=== PATIENT | male | born 1960 | race Two or more races ===

== ENCOUNTER 2018-05-21 13:46 | Emergency (ER) | payer MEDICAID ==
[2018-05-21 13:53] VITALS: BP 150/91
[2018-05-21] MEDS ORDERED: FLUORESCEIN SODIUM 1 MG STRIP OP ONE ×2 (14:01→14:02)
[2018-05-21] MEDS ORDERED: PROPARACAINE 0.5% 15 ML OPHT DROP ONE (14:01)
[2018-05-21] MEDS ORDERED: PROPARACAINE 0.5% 15 ML OPHT DROP RTEYE ONE (14:03)
--- NOTE | 2018-05-21 14:08 | EDPHY ---
HPI/HX/ROS/PE/MDM Narrative: CHIEF COMPLAINT: Right eye injury HPI: This patient is a 57 year old male with history of hypertension, panic attacks, hyperlipidemia. He complains of blood in his right eye. About one hour prior to arrival, he walked into a tree and a branch poked into his right eye. He denies any any pain. He denies any visual changes. No discharge from the eye. The appearance of blood in his eye is his only complaint today. He denies any other recent illness or trauma. REVIEW OF SYSTEMS: A comprehensive 10 system review of systems is otherwise negative aside from elements mentioned in the history of present illness and medical decision making. PMH: Hypertension, panic attacks, hyperlipidemia SOCIAL HISTORY: Single. Self-employed. Lives in [place]. PHYSICAL EXAM: General:Patient is alert, in no acute distress. ENT:Right eye subconjunctival hemorrhage noted. Pupil round and reactive. No deformity. EOMI. Neuro: Oriented x3. Normal motor function. Normal sensory function. ED Course: Slit lamp exam with fluoroscein dye: two parallel corneal abrasions noted to lateral eye. No streaming. MDM: Corneal abrasions with associated small subconj hemorrhage. I will prescribe antibiotic gtts and refer to ophtho. General Time Seen by Provider: 05/21/18 13:59 Initial Vital Signs: Initial Vital Signs Temperature (C) 37.1 C 05/21/18 13:51 Heart Rate 80 05/21/18 13:51 Respiratory Rate 17 05/21/18 13:51 Blood Pressure 150/91 H 05/21/18 13:51 O2 Sat (%) 94 05/21/18 13:51 O2 Delivery Mode Room Air Allergies/Adverse Reactions: No Known Allergies Allergy (Verified 05/21/18 13:51) Home Medications: Medication Instructions Recorded ALPRAZOLAM 0.5 mg PO 06/12/11 Ativan 1 mg PO PRN 06/12/11 Atorvastatin Calcium 03/21/18 Losartan Potassium 03/21/18 PARoxetine HCL 03/21/18 Departure - Departure Disposition: Home, Routine, Self-Care Clinical Impression: Subconjunctival hemorrhage of right eye, Corneal abrasion Condition: Good Instructions: Subconjunctival Hemorrhage (ED), Corneal Abrasion (ED) Additional Instructions: Follow up with your primary care provider. A referral to ophthalmology has been provided as well. Return to the emergency department for pain in your eye, changes in your vision , discharge from the eye, or other worsening of condition. USE ANTIBIOTIC DROPS - ONE DROP IN RIGHT EYE EVERY 4 HOURS WHEN AWAKE FOR FIVE DAYS. Referrals: Jayesh Broderick MD [Primary Care Provider] - As per Instructions Fady Leo MD [Medical Doctor] - As per Instructions Report Scribed for: Boris Nails Report Scribed by: Estefany Live Date of Report: 05/21/18 Time of Report: 14:12 Physician Review and Approval Statement: Portions of this note were transcribed by an ED scribe. I personally performed the history, physical exam, and medical decision making; and confirm the accuracy of the information in the transcribed note.
[2018-05-21] MEDS ORDERED: GENTAMICIN 0.3% DROPS PREPACK OPHT.BTL TAKEHOME ONE (14:14)
== END 2018-05-21 14:23 | disposition home or self-care (01) ==
DX: S05.01XA Injury of conjunctiva and corneal abrasion without foreign body, right eye, initial encounter (principal); W22.09XA Striking against other stationary object, initial encounter; I10 Essential (primary) hypertension; E78.5 Hyperlipidemia, unspecified

== ENCOUNTER 2018-05-25 16:48 | Emergency (ER) | payer MEDICAID ==
[2018-05-25 17:03] VITALS: BP 133/78
--- NOTE | 2018-05-25 17:32 | EDPHY ---
H & P Stated Complaint: eye drops spilled need more Time Seen by Provider: 05/25/18 17:14 HPI/ROS: CHIEF COMPLAINT: Corneal abrasion, ran out of medication HISTORY OF PRESENT ILLNESS: 57-year-old male presents with request for medication refill. He sustained a corneal abrasion a few days ago. He was seen in this emergency department and placed on gentamicin eyedrops. Today he had the drops in his pocket and the liquid ran out of the bottle and onto his shorts. He does not have any further medication. He denies drainage, change in vision or eye pain. REVIEW OF SYSTEMS: complete 10 point ROS reviewed and is negative except for the noted elements in the HPI - Personal History Current Tetanus/Diphtheria Vaccine: Yes Current Tetanus Diphtheria and Acellular Pertussis (TDAP): Yes - Medical/Surgical History Hx Asthma: No Hx Chronic Respiratory Disease: No Hx Diabetes: No Hx Cardiac Disease: Yes Hx Renal Disease: No Hx Cirrhosis: No Hx Alcoholism: No Hx HIV/AIDS: No Hx Splenectomy or Spleen Trauma: No Other PMH: anxiety, HTN, high cholesterol - Social History Smoking Status: Never smoked - Physical Exam Exam: Lids: no proptosis, no periorbital erythema or swelling Conjunctivae: Right subconjunctival hemorrhage, no discharge Pupils:equal round and reactive to light EOMI Cornea: Normal Anterior chamber:Clear, no hyphema Constitutional: Initial Vital Signs Temperature (C) 37.0 C 05/25/18 17:01 Heart Rate 73 05/25/18 17:01 Respiratory Rate 16 05/25/18 17:01 Blood Pressure 133/78 H 05/25/18 17:01 O2 Sat (%) 94 05/25/18 17:01 O2 Delivery Mode Room Air Allergies/Adverse Reactions: No Known Allergies Allergy (Verified 05/25/18 17:03) Home Medications: Medication Instructions Recorded ALPRAZOLAM 0.5 mg PO 06/12/11 Ativan 1 mg PO PRN 06/12/11 Atorvastatin Calcium 03/21/18 Losartan Potassium 03/21/18 PARoxetine HCL 03/21/18 Gentamicin 0.3% Drops Prepack 05/25/18 Gentamicin 0.3% [Gentak 0.3% Opht 2 drop OP Q4 #1 bottle 05/25/18 Drops (RX)] Medical Decision Making ED Course/Re-evaluation: Gentamicin eyedrops called in to the pharmacy by the ED RN. Departure - Departure Disposition: Home, Routine, Self-Care Clinical Impression: Medication refill Corneal abrasion, right Qualifiers: Encounter type: subsequent encounter Qualified Code(s): S05.01XD - Injury of conjunctiva and corneal abrasion without foreign body, right eye, subsequent encounter Condition: Good Instructions: Corneal Abrasion (ED), Medicine Refill (ED) Referrals: NONE *PRIMARY CARE P,. [Primary Care Provider] - As per Instructions Prescriptions: Gentamicin 0.3% [Gentak 0.3% Opht Drops (RX)] 2 drop OP Q4 #1 bottle
== END 2018-05-25 17:45 | disposition home or self-care (01) ==
DX: S05.01XD Injury of conjunctiva and corneal abrasion without foreign body, right eye, subsequent encounter (principal); I10 Essential (primary) hypertension; E78.5 Hyperlipidemia, unspecified; F41.9 Anxiety disorder, unspecified